=== PATIENT | male | born 1960 | race Caucasian/White ===

== ENCOUNTER 2018-01-13 11:39 | Emergency (ER) | payer MEDICAID ==
[~2018-01-13] VITALS: Ht 185.4 cm; Wt 65.0 kg
[~2018-01-13 11:39] MED LIST: ALBU8.5H8 INH; ASPI-1265 PO; COR3.125T PO; DIAZ10TA4 PO; DIPH-423 PO; HYDR-569 PO; LACT1CAP26 PO; LISI-222 PO; METH4TAB3 PO; NICO-687 TD; NITR0.4T51 SL; [UNRECOGNIZED DRUG - CODE] TP
[2018-01-13 12:01] VITALS: BP 113/62
[2018-01-13] MEDS ORDERED: NAPR-56 PO (12:36)
== END 2018-01-13 13:17 | disposition home or self-care (01) ==
LOC: ER 11:40
DX: S42.001K Fracture of unspecified part of right clavicle, subsequent encounter for fracture with nonunion (principal); I25.10 Atherosclerotic heart disease of native coronary artery without angina pectoris; F12.10 Cannabis abuse, uncomplicated; Z86.73 Personal history of transient ischemic attack (TIA), and cerebral infarction without residual deficits; Z59.0 Homelessness; Z95.1 Presence of aortocoronary bypass graft; Z98.890 Other specified postprocedural states; Z60.2 Problems related to living alone; Z88.8 Allergy status to other drugs, medicaments and biological substances; Z79.82 Long term (current) use of aspirin; Z79.899 Other long term (current) drug therapy; X58.XXXD Exposure to other specified factors, subsequent encounter
CPT/HCPCS: 99282; A4565

== ENCOUNTER 2018-03-11 13:54 | Emergency (ER) | payer MEDICAID ==
[~2018-03-11] VITALS: Ht 647.4 cm; Wt 89.0 kg
[2018-03-11] MEDS ORDERED: ketorolac trometh inj. 60 MG/2 ML VIAL IM ONE (14:45)
[2018-03-11] MEDS ORDERED: NAPR-56 PO (14:46)
[2018-03-11 14:57] VITALS: BP 120/61
== END 2018-03-11 14:58 | disposition home or self-care (01) ==
LOC: ER 13:55
DX: S20.211A Contusion of right front wall of thorax, initial encounter (principal); I25.10 Atherosclerotic heart disease of native coronary artery without angina pectoris; F12.90 Cannabis use, unspecified, uncomplicated; Z79.82 Long term (current) use of aspirin; Z79.899 Other long term (current) drug therapy; Z98.890 Other specified postprocedural states; Z59.0 Homelessness; Z60.2 Problems related to living alone; Z95.1 Presence of aortocoronary bypass graft; X58.XXXA Exposure to other specified factors, initial encounter; Y93.89 Activity, other specified; Y92.89 Other specified places as the place of occurrence of the external cause; Y99.8 Other external cause status
CPT/HCPCS: 96372; 99284; J1885

== ENCOUNTER 2018-04-22 15:18 | Emergency (ER) | payer MEDICAID ==
[~2018-04-22] VITALS: Ht 185.4 cm; Wt 87.6 kg
[2018-04-22 15:22] VITALS: BP 132/85
== END 2018-04-22 17:26 | disposition left against medical advice (07) ==
LOC: ER 15:19
DX: M79.661 Pain in right lower leg (principal); Z53.21 Procedure and treatment not carried out due to patient leaving prior to being seen by health care provider

== ENCOUNTER 2018-04-23 08:09 | Emergency (ER) | payer MEDICAID ==
[~2018-04-23] VITALS: Ht 188 cm; Wt 89.0 kg
[2018-04-23] MEDS ORDERED: ibuprofen 200mg tablet PO ONE (10:00)
[2018-04-23 11:08] VITALS: BP 113/76
== END 2018-04-23 11:11 | disposition home or self-care (01) ==
LOC: ER 08:10
DX: S86.811A Strain of other muscle(s) and tendon(s) at lower leg level, right leg, initial encounter (principal); F12.90 Cannabis use, unspecified, uncomplicated; F17.200 Nicotine dependence, unspecified, uncomplicated; I25.10 Atherosclerotic heart disease of native coronary artery without angina pectoris; Z86.14 Personal history of Methicillin resistant Staphylococcus aureus infection; Z86.73 Personal history of transient ischemic attack (TIA), and cerebral infarction without residual deficits; Z95.0 Presence of cardiac pacemaker; Z95.1 Presence of aortocoronary bypass graft; Z88.8 Allergy status to other drugs, medicaments and biological substances; Z79.82 Long term (current) use of aspirin; Z79.899 Other long term (current) drug therapy; Z60.2 Problems related to living alone; Z59.0 Homelessness; X58.XXXA Exposure to other specified factors, initial encounter; Y93.89 Activity, other specified; Y92.89 Other specified places as the place of occurrence of the external cause; Y99.8 Other external cause status
CPT/HCPCS: 93971; 99284

== ENCOUNTER 2019-01-06 15:22 | Emergency (ER) | payer MEDICAID ==
[~2019-01-06] VITALS: Ht 185.4 cm; Wt 97.7 kg
[~2019-01-06 15:22] MED LIST changes: +HYDR-4383 PO; -HYDR-569 PO
[2019-01-06 15:33] VITALS: BP 122/78
[2019-01-06] MEDS ORDERED: predniSONE 20 mg tablet PO ONE (16:05)
[2019-01-06] MEDS ORDERED: ipratropium/albuterol 3ml nebule NEB ONE (16:05)
[2019-01-06] MEDS ORDERED: GUAI120015 PO (16:06)
[2019-01-06] MEDS ORDERED: PRED20TA PO (16:06)
[2019-01-06] MEDS ORDERED: DOXY100C43 PO (16:06)
[2019-01-06] MEDS ORDERED: ALBU6.7H INH (16:06)
== END 2019-01-06 16:38 | disposition home or self-care (01) ==
LOC: ER 15:23
DX: J18.1 Lobar pneumonia, unspecified organism (principal); I25.10 Atherosclerotic heart disease of native coronary artery without angina pectoris; F17.200 Nicotine dependence, unspecified, uncomplicated; F12.90 Cannabis use, unspecified, uncomplicated; Z86.73 Personal history of transient ischemic attack (TIA), and cerebral infarction without residual deficits; Z95.0 Presence of cardiac pacemaker; Z59.0 Homelessness; Z88.8 Allergy status to other drugs, medicaments and biological substances; Z79.82 Long term (current) use of aspirin
CPT/HCPCS: 71046; 94640; 94760; 99283; J7512

== ENCOUNTER 2019-01-29 18:38 | Emergency (ER) | payer MEDICAID ==
[~2019-01-29] VITALS: Ht 185.4 cm; Wt 74.8 kg
[~2019-01-29 18:38] MED LIST changes: +ALBU6.7H INH; +GUAI120015 PO
[2019-01-29 18:48] VITALS: BP 130/82
[2019-01-29] MEDS ORDERED: CLIN300C70 PO (19:53)
[2019-01-29] MEDS ORDERED: IBUP-1984 PO (19:53)
== END 2019-01-29 20:16 | disposition home or self-care (01) ==
LOC: ER 18:40
DX: K02.9 Dental caries, unspecified (principal); I49.9 Cardiac arrhythmia, unspecified; I25.10 Atherosclerotic heart disease of native coronary artery without angina pectoris; F12.90 Cannabis use, unspecified, uncomplicated; Z86.14 Personal history of Methicillin resistant Staphylococcus aureus infection; Z86.73 Personal history of transient ischemic attack (TIA), and cerebral infarction without residual deficits; Z95.1 Presence of aortocoronary bypass graft; Z95.0 Presence of cardiac pacemaker; Z98.890 Other specified postprocedural states; Z60.2 Problems related to living alone; Z59.0 Homelessness; Z79.82 Long term (current) use of aspirin; Z79.899 Other long term (current) drug therapy
CPT/HCPCS: 99283

== ENCOUNTER 2019-11-22 17:34 | Emergency (ER) | payer MEDICAID ==
[~2019-11-22] VITALS: Ht 185.4 cm; Wt 93.2 kg
[~2019-11-22 17:34] MED LIST changes: -ALBU6.7H INH; +ALBU6.7H9 INH
[2019-11-22 18:37] LABS: BASOPHILS # (AUTO) 0.1 X10'3 (0-0.2); BASOPHILS % (AUTO) 0.9 % (0-1); EOSINOPHILS # (AUTO) 0.3 X10'3 (0-0.9); EOSINOPHILS % (AUTO) 3.5 % (0-6); HEMATOCRIT 40.4 % (42.0-52.0); LYMPHOCYTES # (AUTO) 1.9 X10'3 (1.1-4.8); LYMPHOCYTES % (AUTO) 20.8 % (21-51); MEAN CORPUSCULAR HEMOGLOBIN 30.6 PG (27.0-31.0); MEAN CORPUSCULAR HGB CONC 34.6 g/dL (33.0-36.5); MEAN CORPUSCULAR VOLUME 88.6 FL (78-98); MEAN PLATELET VOLUME 8.6 FL (7.4-10.4); NEUTROPHILS # (AUTO) 5.9 X10'3 (1.8-7.7); NEUTROPHILS % (AUTO) 63.8 % (42-75); PLATELET COUNT 229 X10'3 (140-440); RED BLOOD COUNT 4.56 X10'6 (4.70-6.10); RED CELL DISTRIBUTION WIDTH 13.4 % (11.5-14.5); WHITE BLOOD COUNT 9.3 X10'3 (4.5-11.0)
[2019-11-22 18:56] LABS: ALANINE AMINOTRANSFERASE 64 U/L (12-78); ALBUMIN 2.9 G/DL (3.4-5.0); ALBUMIN/GLOBULIN RATIO 0.9 (1.1-1.5); ALKALINE PHOSPHATASE 84 IU/L (46-116); ANION GAP 7 (8-16); ASPARTATE AMINO TRANSFERASE 35 U/L (10-37); BILIRUBIN,TOTAL 0.4 MG/DL (0.1-1.0); BLOOD UREA NITROGEN 10 MG/DL (7-18); BUN/CREATININE RATIO 10.1 (5.4-32.0); CALCIUM 8.2 MG/DL (8.5-10.1); CHLORIDE 105 MMOL/L (99-107); CREATININE 0.99 MG/DL (0.60-1.10); GLUCOSE 128 MG/DL (70-104); LIPASE 160 U/L (73-393); SODIUM 137 MMOL/L (135-145); TOTAL CARBON DIOXIDE 25.4 MMOL/L (24-32); TOTAL PROTEIN 6.1 G/DL (6.4-8.2); eGFR 78 ML/MIN
--- NOTE | 2019-11-22 19:22 | NUR ---
PATIENT STATES LAST EMESIS WAS YESTERDAY. LAST LOOSE BM WAS THIS MORNING. DENIES BLOOD IN EITHER.
--- NOTE | 2019-11-22 19:25 | NUR ---
PATIENT UNABLE TO PINPOINT LOCATION OF PAIN, STATES IT IS ALL OVER HIS BODY. "TUMMY, INTESTINES, SHOULDERS, LEGS." ALSO STATES "HE GOT LUNG CANCER A WEEK AGO AND IT SHOT DOWN TO HIS STOMACH AND TORE IT ALL UP HASN'T BEEN TESTED OR ANYTHING BUT HAS IT"
[2019-11-22] MEDS ORDERED: famotidine 20mg tablet PO ONE (19:40)
[2019-11-22] MEDS ORDERED: LORazepam 1 MG tablet PO ONE (19:40)
[2019-11-22] MEDS ORDERED: ondansetron 4mg rapidly disintigrating tab PO ONE (19:40)
[2019-11-22] MEDS ORDERED: ONDA4TAB6 PO (20:22)
[2019-11-22 20:45] LABS: CLARITY,URINE CLEAR (Clear); COLOR,URINE YELLOW (Yellow); GLUCOSE, URINE NEGATIVE (Neg); KETONES,URINE NEGATIVE (Neg); LEUKOCYTE ESTERASE ,URINE NEGATIVE (Neg); NITRITES, URINE NEGATIVE (Neg); OCCULT BLOOD,URINE TRACE-INTACT (Neg); PROTEIN,URINE NEGATIVE (Neg); UROBILINOGEN,URINE 0.2 E.U/dL (0.2-1.0)
[2019-11-22 21:01] LABS: UA COLLECTION TYPE URINAL
[2019-11-22 21:03] LABS: BACTERIA,URINE NONE SEEN /HPF (Neg); RBC,URINE 0-2 /HPF (0-2); SQUAMOUS EPITHELIAL CELL,UR FEW /LPF (FEW); WBC,URINE 0-4 /HPF (0-4)
[2019-11-22 21:20] VITALS: BP 118/73
== END 2019-11-22 21:22 | disposition home or self-care (01) ==
LOC: ER 17:35
DX: R11.2 Nausea with vomiting, unspecified (principal); R19.7 Diarrhea, unspecified; R10.84 Generalized abdominal pain; I25.10 Atherosclerotic heart disease of native coronary artery without angina pectoris; F32.9 Major depressive disorder, single episode, unspecified; F12.90 Cannabis use, unspecified, uncomplicated; Z98.890 Other specified postprocedural states; Z60.2 Problems related to living alone; Z59.0 Homelessness; Z79.82 Long term (current) use of aspirin; Z79.899 Other long term (current) drug therapy; Z86.14 Personal history of Methicillin resistant Staphylococcus aureus infection; Z95.1 Presence of aortocoronary bypass graft; Z72.89 Other problems related to lifestyle; Z86.73 Personal history of transient ischemic attack (TIA), and cerebral infarction without residual deficits
CPT/HCPCS: 36415; 80053; 81001; 83690; 85025; 93005; 99284

== ENCOUNTER 2020-02-25 20:33 | Emergency (ER) | payer MEDICAID ==
[~2020-02-25] VITALS: Ht 185.4 cm; Wt 94.1 kg
[~2020-02-25 20:33] MED LIST changes: +ONDA4TAB6 PO
[2020-02-25 20:34] VITALS: BP 117/72
[2020-02-25] MEDS ORDERED: LIDOcaine 5% patch TP STA (21:16)
[2020-02-25] MEDS ORDERED: ketorolac tromethamine 15mg/ml inj. IM ONE (21:20)
[2020-02-25] MEDS ORDERED: IBUP-1985 PO (21:31)
== END 2020-02-25 21:41 | disposition home or self-care (01) ==
LOC: ER 20:33
DX: G89.29 Other chronic pain (principal); M54.5 Low back pain; I25.10 Atherosclerotic heart disease of native coronary artery without angina pectoris; F32.9 Major depressive disorder, single episode, unspecified; F12.90 Cannabis use, unspecified, uncomplicated; Z86.73 Personal history of transient ischemic attack (TIA), and cerebral infarction without residual deficits; Z86.14 Personal history of Methicillin resistant Staphylococcus aureus infection; Z95.0 Presence of cardiac pacemaker; Z98.890 Other specified postprocedural states; Z72.89 Other problems related to lifestyle; Z60.2 Problems related to living alone; Z59.0 Homelessness; Z79.899 Other long term (current) drug therapy
CPT/HCPCS: 96372; 99283; J1885